=== PATIENT | male | born 1940 | race Two or more races ===

== ENCOUNTER 2023-02-14 10:08 | Inpatient (IN) | payer OTHER ==
[~2023-02-14] VITALS: Ht 175.3 cm; Wt 68.0 kg
[2023-02-14] MEDS ORDERED: CARVEDILOL25 M1 (10:17)
[2023-02-14] MEDS ORDERED: VALSARTAN320 MG (10:18)
[2023-02-14] MEDS ORDERED: ATORVASTATIN CA10 MG (10:19)
[2023-02-14] MEDS ORDERED: FARXIGA10 MG (10:19)
[2023-02-14] MEDS ORDERED: MINOXIDIL (10:19)
[2023-02-14] MEDS ORDERED: FINASTERIDE5 MG (10:20)
[2023-02-14] MEDS ORDERED: ALDACTONE25 MG (10:20)
[2023-02-14] MEDS ORDERED: PLAVIX75 MG (10:20)
[2023-02-14 11:32] LABS: HEMATOCRIT 41.4 % (39.0-48.0); HEMOGLOBIN 14.3 g/dL (13-16.00); MEAN CELL VOLUME 91.4 fL (80.0-100.00); MEAN CORPUSCULAR HEMOGLOBIN 31.6 pg (27.00-32.0); MEAN CORPUSCULAR HGB CONC 34.6 g/dl (32.0-36.0); RED BLOOD COUNT 4.53 M/uL (4.00-6.00); RED CELL DISTRIBUTION WIDTH 16.2 % (11.5-14.5)
[2023-02-14 11:48] LABS: PLATELET COUNT 112 K/uL (150-450)
[2023-02-14 12:08] LABS: CALCIUM 8.8 mg/dL (8.5-10.1); CREATININE SERUM 2.24 mg/dL (0.70-1.30); GFR 28.07; POTASSIUM 3.89 mEq/L (3.5-5.1)
[2023-02-14 12:39] LABS: URINE APPEARANCE Cloudy; URINE BILIRRUBIN Negative (NEGATIVE); URINE BLOOD Moderate; URINE COLOR Dark Yellow; URINE LEUKOCYTE Negative; URINE NITRATE Negative
[2023-02-14 12:42] LABS: URINE EPITHELIAL CELLS 30.9 uL (0.0-38.8); URINE RBC 39.6 uL (0.0-20.8)
[2023-02-14 12:50] LABS: URINE GLUCOSE >=1000 MG/DL (NEGATIVE)
[2023-02-14 12:51] LABS: URINE PROTEIN 100 (NEGATIVE)
[2023-02-14 17:58] LABS: ABG PH 7.261 (7.35-7.45); ABG pCO2 56.1 mmHg (35-45)
[2023-02-14 17:59] LABS: ABG PO2 49.9 mmHg (80-100); BASE EXCESS -3.3 mmol/l; BICARBONATE 24.7 mmol/l (23-25); SaO2 77.9 %; Tco2 26.4 mmol/l; allen test SATISFACTORY; o2 21 %; puncture site RADIAL RIGHT
[2023-02-14 19:21] LABS: ABG PH 7.401 (7.35-7.45); ABG PO2 366.2 mmHg (80-100); ABG pCO2 35.3 mmHg (35-45); BASE EXCESS -2.6 mmol/l; BICARBONATE 21.5 mmol/l (23-25); SaO2 99.9 %; Tco2 22.5 mmol/l
[2023-02-14 19:22] LABS: allen test SATISFACTORY; o2 80 %; puncture site RADIAL RIGHT
[2023-02-14 19:34] LABS: MAGNESIUM 2.4 mg/dL (1.8-2.4); PHOSPHOROUS 2.9 mg/dL (2.5-4.9)
[2023-02-14 20:24] LABS: ABG PH 7.383 (7.35-7.45); ABG PO2 217.7 mmHg (80-100); ABG pCO2 37.6 mmHg (35-45); BASE EXCESS -2.7 mmol/l; BICARBONATE 21.9 mmol/l (23-25); SaO2 99.7 %; Tco2 23.1 mmol/l
[2023-02-14 20:25] LABS: allen test SATISFACTORY; o2 50 %; puncture site RADIAL RIGHT
[2023-02-14 20:43] LABS: D DIMER 1.71 MG/L; INR 1.07; PROTHROMBIN TIME 11.2 SECONDS (9.0-11.5)
[2023-02-16 05:26] LABS: HEMATOCRIT 38.5 % (39.0-48.0); HEMOGLOBIN 13.1 g/dL (13-16.00); MEAN CELL VOLUME 92.7 fL (80.0-100.00); MEAN CORPUSCULAR HEMOGLOBIN 31.5 pg (27.00-32.0); PLATELET COUNT 150 K/uL (150-450); RED BLOOD COUNT 4.15 M/uL (4.00-6.00); RED CELL DISTRIBUTION WIDTH 16.1 % (11.5-14.5)
[2023-02-16 05:39] LABS: ALBUMIN 2.8 gm/dL (3.4-5.0); CREATININE SERUM 1.67 mg/dL (0.70-1.30); GFR 39.39; PHOSPHOROUS 2.4 mg/dL (2.5-4.9); POTASSIUM 3.43 mEq/L (3.5-5.1)
[2023-02-16 05:43] LABS: ALBUMIN 2.8 gm/dL (3.4-5.0); BILIRUBIN TOTAL 0.39 mg/dL (0.3-1.2); CALCIUM 8.5 mg/dL (8.5-10.1); CREATININE SERUM 1.73 mg/dL (0.70-1.30); GFR 37.82; GLOBULINA 4.6 G/DL (2.4-3.5); MAGNESIUM 2.6 mg/dL (1.8-2.4); PHOSPHOROUS 2.3 mg/dL (2.5-4.9); POTASSIUM 3.31 mEq/L (3.5-5.1); TOTAL PROTEIN 7.4 gm/dL (6.4-8.2)
[2023-02-16 05:52] LABS: MYCOPLASMA PNEUMONIAE IGM NON REACTIVE (NO REACTIVE)
[2023-02-16 05:54] LABS: C-REACTIVE PROTEIN 12.6 MG/DL (0.00-0.29)
[2023-02-17 08:34] LABS: ABG PH 7.405 (7.35-7.45); ABG PO2 75.2 mmHg (80-100); ABG pCO2 40.4 mmHg (35-45); BASE EXCESS 0.1 mmol/l; BICARBONATE 24.7 mmol/l (23-25); allen test SATISFACTORY; puncture site RADIAL RIGHT
[2023-02-17 08:35] LABS: o2 35 %
[2023-02-17 10:45] LABS: HEMATOCRIT 38.2 % (39.0-48.0); HEMOGLOBIN 13.2 g/dL (13-16.00); MEAN CELL VOLUME 91.6 fL (80.0-100.00); MEAN CORPUSCULAR HEMOGLOBIN 31.6 pg (27.00-32.0); MEAN CORPUSCULAR HGB CONC 34.5 g/dl (32.0-36.0); PLATELET COUNT 154 K/uL (150-450); RED BLOOD COUNT 4.17 M/uL (4.00-6.00); RED CELL DISTRIBUTION WIDTH 16.4 % (11.5-14.5)
[2023-02-17 11:26] LABS: ALBUMIN 2.5 gm/dL (3.4-5.0); BILIRUBIN TOTAL 0.54 mg/dL (0.3-1.2); CALCIUM 8.2 mg/dL (8.5-10.1); CREATININE SERUM 1.47 mg/dL (0.70-1.30); GFR 45.64; GLOBULINA 3.8 G/DL (2.4-3.5); POTASSIUM 4.32 mEq/L (3.5-5.1); TOTAL PROTEIN 6.3 gm/dL (6.4-8.2)
[2023-02-20 07:52] LABS: HEMATOCRIT 39.5 % (39.0-48.0); HEMOGLOBIN 13.1 g/dL (13-16.00); MEAN CORPUSCULAR HEMOGLOBIN 30.6 pg (27.00-32.0); MEAN CORPUSCULAR HGB CONC 33.3 g/dl (32.0-36.0); PLATELET COUNT 268 K/uL (150-450); RED BLOOD COUNT 4.29 M/uL (4.00-6.00); RED CELL DISTRIBUTION WIDTH 16.2 % (11.5-14.5)
[2023-02-20 08:45] LABS: ALBUMIN 2.7 gm/dL (3.4-5.0); BILIRUBIN TOTAL 0.42 mg/dL (0.3-1.2); CALCIUM 8.9 mg/dL (8.5-10.1); CREATININE SERUM 1.22 mg/dL (0.70-1.30); GFR 56.59; GLOBULINA 4.1 G/DL (2.4-3.5); MAGNESIUM 2.4 mg/dL (1.8-2.4); PHOSPHOROUS 2.4 mg/dL (2.5-4.9); POTASSIUM 4.61 mEq/L (3.5-5.1); TOTAL PROTEIN 6.8 gm/dL (6.4-8.2)
[2023-02-20 08:46] LABS: C-REACTIVE PROTEIN 8.33 MG/DL (0.00-0.29)
[2023-02-21] MEDS ORDERED: LOSARTAN POTAS100 MG PO (18:05)
[2023-02-21] MEDS ORDERED: TOPROL XL50 M1 PO (18:06)
[2023-02-21] MEDS ORDERED: NIFEDIPINE ER60 MG PO (18:06)
[2023-02-21] MEDS ORDERED: HYDRALAZINE HCL50 MG PO (18:06)
[2023-02-21] MEDS ORDERED: LEVOFLOXACIN750 MG PO (18:08)
== END 2023-02-21 19:07 | disposition home or self-care (01) | DRG 193 ==
LOC: ER 10:08 → ICU-2 18:26 → MEDJ 02-16 22:33
PROVIDERS: Emergency Medicine; General Practice; Internal Medicine; Internal Medicine Infectious Disease; Internal Medicine Nephrology; ADMIT Internal Medicine; ATTEND Internal Medicine
PROC: BW24ZZZ Computerized Tomography (CT Scan) of Chest and Abdomen (ICD-10-PCS; principal; 2023-02-14)
PROC: BW29ZZZ Computerized Tomography (CT Scan) of Head and Neck (ICD-10-PCS; 2023-02-14)
PROC: B24BYZZ Ultrasonography of Heart with Aorta using Other Contrast (ICD-10-PCS; 2023-02-16)
DX: J18.9 Pneumonia, unspecified organism (principal); A41.9 Sepsis, unspecified organism; C34.90 Malignant neoplasm of unspecified part of unspecified bronchus or lung; J44.9 Chronic obstructive pulmonary disease, unspecified; D69.6 Thrombocytopenia, unspecified; I12.9 Hypertensive chronic kidney disease with stage 1 through stage 4 chronic kidney disease, or unspecified chronic kidney disease; N18.9 Chronic kidney disease, unspecified; I11.0 Hypertensive heart disease with heart failure; I50.9 Heart failure, unspecified; R09.02 Hypoxemia